=== PATIENT | female | born 1960 | race Caucasian/White ===

== ENCOUNTER 2019-08-10 09:11 | Outpatient (CLI) | payer OTHER, SELFPAY ==
--- NOTE | 2019-08-10 13:46 | DI.RAD_ITS ---
EXAM: XR HIP RT COMPLETE AP PELVIS CLINICAL HISTORY: RT HIP DYSFUNCTION, LOSS OF ROM, EVALUATE FOR DJD TECHNIQUE: COMPARISON: No exams were available for comparison FINDINGS: Two views were obtained. The cartilaginous joint spaces both hips appear well maintained. There is minimal hypertrophic spurring of the acetabula bilaterally. No other bony abnormality seen. IMPRESSION: Minimal DJD of both hips.
--- NOTE | 2019-08-10 14:12 | DI.RAD_ITS ---
EXAM: XR LUMBAR SPINE COMPLETE CLINICAL HISTORY: LUMBOSACRAL DISC/FACET SYNDROME, H/O DDD TECHNIQUE: COMPARISON: No exams were available for comparison FINDINGS: Five views were obtained and show moderate hypertrophic changes of the facet joints most marked at L4 -5 and L5-S1. No evidence of spondylolysis or spondylolisthesis. There is loss of intervertebral di sc height at L5-S1 consistent with disc degeneration. There is no evidence of spondylolysis or spond ylolisthesis. SI joints show mild degenerative change. No fracture identified. IMPRESSION: Degenerative facet changes most marked at L4-5 L5-S1 bilaterally.
== END 2019-08-10 09:31 ==
PROVIDERS: PCP Nurse Practitioner Family
DX: M25.551 Pain in right hip (principal); M25.851 Other specified joint disorders, right hip; M16.0 Bilateral primary osteoarthritis of hip; M54.5 Low back pain; M47.818 Spondylosis without myelopathy or radiculopathy, sacral and sacrococcygeal region; M51.37 Other intervertebral disc degeneration, lumbosacral region
CPT/HCPCS: 72110; 73502

== ENCOUNTER 2019-09-20 13:15 | Outpatient (CLI) | payer OTHER, SELFPAY ==
--- NOTE | 2019-09-20 13:52 | DI.RAD_ITS ---
EXAM: XR KNEE RT 3V AP,LAT,ELIZABETH INDICATION: CHRONIC RECURRENT POSTEROLATERAL KNEE SPRAIN/STRAIN, ? DJD, REMOTE ACL RECONSTRUCTION. COMPARISON: No exams were available for comparison TECHNIQUE: 2D digital imaging was performed. FINDINGS: There are lucencies in the distal fibula and proximal tibia related to previous ACL repair. There is moderate narrowing of the medial femorotibial joint space and mild medial spurring. The lateral fem orotibial joint space is well maintained. No joint effusion is seen. IMPRESSION: Moderate degenerative changes of the medial femorotibial joint.
== END 2019-09-20 13:35 ==
PROVIDERS: PCP Nurse Practitioner Family; Visit Provider Chiropractor
DX: M25.561 Pain in right knee (principal); M17.11 Unilateral primary osteoarthritis, right knee; S83.91XD Sprain of unspecified site of right knee, subsequent encounter
CPT/HCPCS: 73562

== ENCOUNTER 2020-09-30 00:20 | Outpatient (CLI) | payer OTHER, SELFPAY ==
--- NOTE | 2020-09-30 | DI.MAMMO_ITS ---
EXAM: MG MAMMO SCREENING CLINICAL HISTORY: SCREENING, [facility],Z00.00 TECHNIQUE: Bilateral full field digital CC and MLO mammographic images were obtained with 3D tomosyn thesis and utilizing computer aided detection (CAD). COMPARISON: Available for comparison. FINDINGS: Masses/Architectural Distortion: There is a small asymmetric density in the outer left breast on the CC view. Microcalcifications: No suspicious pleomorphic-type are seen. Skin Thickening/Nipple Retraction: None. IMPRESSION: 1. Asymmetric density in the outer left breast on the CC view. 2. Further evaluation with spot compression views recommended. Ultrasound may be indicated at that t tg. BI-RADS Category 0 - Assessment Incomplete: Need additional imaging evaluation Breast Density - Category B - Scattered areas of fibroglandular density A negative radiographic report should not delay biopsy if a dominant or clinically suspicious mass is present. Up to ten percent of cancers are not identified on mammography. A negative report may reinforce clinical impression. Adenosis and dense breasts may obscure an underlying neoplasm. False positive reports average 6 to 10%. Patient will receive a letter notifying them of these results.
== END 2020-09-30 00:40 ==
PROVIDERS: PCP Nurse Practitioner Family; Visit Provider Nurse Practitioner Family
DX: Z12.31 Encounter for screening mammogram for malignant neoplasm of breast (principal); R92.8 Other abnormal and inconclusive findings on diagnostic imaging of breast
CPT/HCPCS: 77063; 77067

== ENCOUNTER 2020-10-15 01:41 | Outpatient (CLI) | payer OTHER, SELFPAY ==
--- NOTE | 2020-10-15 | DI.US_ITS ---
EXAM: MG MAMMO SCREEN CALL BACK UNI CLINICAL HISTORY: F/U MAMMO, ASYMMETRIC DENSITY OUTER LT BREAST TECHNIQUE: Mammograms were interpreted according to the usual protocol including computer analysis w ith CAD system, tomosynthesis and C-view imaging. COMPARISON: FINDINGS: Additional mammographic views of the left breast and left breast ultrasound are interpreted in conjun ction. These examinations were obtained to evaluate questionable area of asymmetric density in appro ximately the 3 o'clock position in the left breast seen on recent mammogram. Additional mammographic views fail to show a discrete mass. Breast ultrasound shows no discrete solid mass, there is a 3 mi llimeter in diameter simple cyst with minimal homogeneous internal echogenicity in approximately the 4 o'clock position 3 cm from the nipple in the left breast. IMPRESSION: No specific evidence of malignancy at this time. Follow-up unilateral left breast mammogram recomme nded in 6 months. BI-RADS Category 3 - 6 month - Probably Benign Finding: Recommend follow-up mammography in 6 months Breast Density - Category B - Scattered areas of fibroglandular density
== END 2020-10-15 02:01 ==
PROVIDERS: PCP Nurse Practitioner Family; Visit Provider Nurse Practitioner Family
DX: Z12.31 Encounter for screening mammogram for malignant neoplasm of breast (principal); R92.8 Other abnormal and inconclusive findings on diagnostic imaging of breast; N60.02 Solitary cyst of left breast
CPT/HCPCS: 76642; 77063; 77067

== ENCOUNTER 2021-05-12 12:40 | Outpatient (REF) | payer OTHER, SELFPAY ==
--- NOTE | 2021-05-12 10:30 | PAPFT_PTH ---
PATIENT: Isis Spears LOC: [facility] U#:[id number] AGE/SX: 61/F ROOM: RE05/12/[address]: Elvira Desai : 1960 BED: DIS: 05/12/2021 SPEC #: [id number] RECD: 05/13/21 12:56 STATUS: LAN RENikolai #: [id number] BERTRAM: 05/12/21 10:[address]: Elvira Desai DEPT: [facility] Cytology RECD BY: Jessie Gaitan Tissues: 1 - CX/ENDOCX FOR PAP SMEARS Procedures: PAP THIN PREP/UVM Screening HPV DNA PROBE Comments: [id number]
[2021-05-12 20:18] LABS: Anion Gap 10.1 mmol/L (3-11); BUN 22 mg/dL (7-18); CO2 26.9 mmol/L (21.0-32.0); CREATININE 0.9 mg/dL (0.55-1.02); Calcium 9.2 mg/dL (8.5-10.1); Calculated LDL 135 mg/dL (<100); Chloride 105 mmol/L (98-107); Cholesterol 209 mg/dL (<200); Glucose 85 mg/dL (74-106); HDL Cholesterol 58 mg/dL (40-60); Potassium 4.5 mmol/L (3.5-5.1); Sodium 142 mmol/L (136-145); TSH (W/Ref FT4) 1.12 uIU/mL (0.36-3.74); Triglyceride 80 mg/dL (<150)
== END 2021-05-12 12:41 | disposition home or self-care (01) ==
LOC: NCHCN 12:40
PROVIDERS: PCP Nurse Practitioner Family; Visit Provider Nurse Practitioner Family
DX: Z00.00 Encounter for general adult medical examination without abnormal findings (principal); Z82.49 Family history of ischemic heart disease and other diseases of the circulatory system; Z83.3 Family history of diabetes mellitus; Z12.4 Encounter for screening for malignant neoplasm of cervix; Z11.51 Encounter for screening for human papillomavirus (HPV)
CPT/HCPCS: 80048; 80061; 88142; 84443; 87624

== ENCOUNTER 2021-05-21 13:34 | Outpatient (REF) | payer OTHER, SELFPAY ==
[2021-05-21 15:41] LABS: Hemoglobin A1C 6.1 % (<5.7)
== END 2021-05-21 13:35 | disposition home or self-care (01) ==
LOC: NCHCN 13:34
PROVIDERS: PCP Nurse Practitioner Family; Visit Provider Nurse Practitioner Family
DX: Z13.1 Encounter for screening for diabetes mellitus (principal)
CPT/HCPCS: 83036

== ENCOUNTER 2021-05-21 15:02 | Outpatient (CLI) | payer OTHER, SELFPAY ==
--- NOTE | 2021-05-21 | DI.RAD_ITS ---
Exam(s) XR THORACIC SPINE COMPLETE EXAM: XR THORACIC SPINE COMPLETE CLINICAL HISTORY: UPPER BACK PAIN, M54.9 TECHNIQUE: COMPARISON: CR CHEST 2 VIEWS PA,LAT from 09/05/2013 CR CHEST 2 VIEWS PA,LAT from 09/05/2013 FINDINGS: Three views were obtained. There is mild anterior compression deformity of what appears to be the T4 vertebral body. IMPRESSION: Mild anterior T4 vertebral body compression fracture of uncertain age. RADIATION DOSE DELIVERED: Total DLP
--- NOTE | 2021-05-21 | DI.RAD_ITS ---
Exam(s) XR CERVICAL SPINE COMP 4-5V EXAM: XR CERVICAL SPINE COMP 4-5V CLINICAL HISTORY: NECK PAIN, M54.2. TECHNIQUE: 2D digital imaging was performed. COMPARISON: No exams were available for comparison FINDINGS: There is no evidence of acute fracture. Calcification is seen in the supraspinous ligament posterior to the spinous process is of C7 and T1. These calcifications do not have the appearance of acute av ulsion velasquez-regulator pin inserter's fractures. There is moderate disc space narrowing at C5-6 level. Small Luschka joint osteophytes evident at thi s level. The other disc spaces exhibit normal height. There is mild anterolisthesis of C4 upon C5 r elated to facet joint arthropathy. The disc space at this level exhibits normal height. Disc space at C6-7 level also exhibits normal height. There are no cervical ribs. No osseous lesions. Cervical curvature is maintained. IMPRESSION: Degenerative disc disease at C5-6 as described above. Other findings as above. DATA REPOSITORY: RADIATION DOSE DELIVERED:
== END 2021-05-21 15:22 ==
PROVIDERS: PCP Nurse Practitioner Family; Visit Provider Nurse Practitioner Family
DX: S22.040A Wedge compression fracture of fourth thoracic vertebra, initial encounter for closed fracture (principal); M54.9 Dorsalgia, unspecified; M50.322 Other cervical disc degeneration at C5-C6 level; X58.XXXA Exposure to other specified factors, initial encounter; Y99.8 Other external cause status
CPT/HCPCS: 72050; 72072

== ENCOUNTER 2021-06-17 02:03 | Outpatient (CLI) | payer OTHER, SELFPAY ==
--- NOTE | 2021-06-17 09:50 | DI.MAMMO_ITS ---
Exam(s) MG MAMMO DIAGNOSTIC UNI EXAM: MAMMO DIAGNOSTIC UNI CLINICAL HISTORY: DIAGNOSTIC, F/U ABNL MAMMO, 6 MO F/U,R92.8. TECHNIQUE: Craniocaudal and mediolateral oblique Full Field Digital Mammography views of the left br east with Computer Aided Diagnosis followed by Tomosynthesis. COMPARISON: Priors available for comparison. FINDINGS: Mammography/Tomosynthesis: Masses/Architectural Distortion: None seen. Microcalcifictions: No suspicious pleomorphic-type are seen. Skin Thickening/Nipple Retraction: None. IMPRESSION: 1. No evidence of malignancy is noted. 2. Unless there is more urgent need, follow-up screening mammography is recommended, as per [place] [employer] guidelines. 3. The findings were discussed with the patient on the date of the examination. BI-RADS Category 1 - Negative Breast Density - Category B - Scattered areas of fibroglandular density Breast density Category C or D implies that the patient has dense breast tissue. Dense breast tissue can make it harder to find cancer on a mammogram. Dense breast tissue is also associated with an incr eased risk of breast cancer. This information about the result of the mammogram report was provided to the patient to raise their awareness. Use this report when you speak with the patient about their risks for breast cancer, which includes their family history. At that time, you may recommend additional screening tests (Ultrasoun d or MRI) as these tests may add significant information. A negative radiographic report should not delay biopsy if a dominant or clinically suspicious mass is present. Up to ten percent of cancers are not identified on mammography. A negative report may reinforce clinical impression. Adenosis and dense breasts may obscure an underlying neoplasm. False positive reports average 6 to 10%. Patient will receive a letter notifying them of these results.
== END 2021-06-17 02:23 ==
PROVIDERS: PCP Nurse Practitioner Family; Visit Provider Nurse Practitioner Family
DX: R92.8 Other abnormal and inconclusive findings on diagnostic imaging of breast (principal)
CPT/HCPCS: 77061; 77065; G0279

== ENCOUNTER 2022-01-04 11:40 | Outpatient (CLI) | payer OTHER, SELFPAY ==
--- NOTE | 2022-01-04 11:00 | DI.RAD_ITS ---
Exam(s) XR SHOULDER LT COMPLETE 2+V EXAM: XR SHOULDER LT COMPLETE 2+V CLINICAL HISTORY: CLOSED PROXIMAL HUMERUS FRACTURE. TECHNIQUE: 2D digital imaging was performed. COMPARISON: No exams were available for comparison FINDINGS: Two views No evidence of fracture or dislocation soft tissue calcifications. The subacromial space is not dimi nished. No osteophytes. No degenerative changes glenohumeral and AC joints. Bone density is age ap propriate. IMPRESSION: DATA REPOSITORY: RADIATION DOSE DELIVERED:
== END 2022-01-04 11:41 | disposition home or self-care (01) ==
LOC: DIORS 11:40
PROVIDERS: PCP Nurse Practitioner Family; Visit Provider Physician Assistant
DX: S42.295A Other nondisplaced fracture of upper end of left humerus, initial encounter for closed fracture (principal); V80.010A Animal-rider injured by fall from or being thrown from horse in noncollision accident, initial encounter
CPT/HCPCS: 73030

== ENCOUNTER 2022-02-19 10:34 | Outpatient (CLI) | payer OTHER, SELFPAY ==
--- NOTE | 2022-02-19 10:15 | DI.RAD_ITS ---
Exam(s) XR SHOULDER LT COMPLETE 2+V EXAM: XR SHOULDER LT COMPLETE 2+V CLINICAL HISTORY: F/U LEFT PROXIMAL HUMERUS FRACTURE. TECHNIQUE: 2D digital imaging was performed. COMPARISON: DX Shoulder LT from 12/16/2021 CR XR SHOULDER LT COMPLETE 2+V from 01/04/2022 FINDINGS: 3 views There appear to be a healing fracture site at the greater tuberosity level. No other findings. No obvious degenerative changes in the AC joint. IMPRESSION: DATA REPOSITORY: RADIATION DOSE DELIVERED:
== END 2022-02-19 10:35 | disposition home or self-care (01) ==
LOC: DIORS 10:34
PROVIDERS: PCP Nurse Practitioner Family; Referring Provider Nurse Practitioner Family; Visit Provider Student in an Organized Health Care Education/Training Program
DX: S42.295D Other nondisplaced fracture of upper end of left humerus, subsequent encounter for fracture with routine healing (principal); V80.010D Animal-rider injured by fall from or being thrown from horse in noncollision accident, subsequent encounter
CPT/HCPCS: 73030

== ENCOUNTER 2022-03-22 13:48 | Outpatient (CLI) | payer OTHER, SELFPAY ==
--- NOTE | 2022-03-22 13:00 | DI.RAD_ITS ---
Exam(s) XR SHOULDER LT COMPLETE 2+V EXAM: XR SHOULDER LT COMPLETE 2+V CLINICAL HISTORY: left proximal humerus fx f/u. TECHNIQUE: 2D digital imaging was performed. Three views. COMPARISON: DX Shoulder LT from 12/16/2021 CR XR SHOULDER LT COMPLETE 2+V from 01/04/2022 CR XR SHOULDER LT COMPLETE 2+V from 02/19/2022 FINDINGS: BONES: No change in greater tuberosity fracture.. No bony destructive lesion is seen. JOINTS: No dislocation present. Mild degenerative changes of the glenohumeral joint. SOFT TISSUE: Normal. IMPRESSION: Stable greater tuberosity fracture. DATA REPOSITORY: RADIATION DOSE DELIVERED:
== END 2022-03-22 13:49 | disposition home or self-care (01) ==
LOC: DIORS 13:48
PROVIDERS: PCP Nurse Practitioner Family; Referring Provider Nurse Practitioner Family; Visit Provider Physician Assistant
DX: S42.295D Other nondisplaced fracture of upper end of left humerus, subsequent encounter for fracture with routine healing (principal); V80.010D Animal-rider injured by fall from or being thrown from horse in noncollision accident, subsequent encounter
CPT/HCPCS: 73030

== ENCOUNTER 2022-06-10 10:05 | Outpatient (CLI) | payer OTHER, SELFPAY ==
--- NOTE | 2022-06-10 09:45 | DI.RAD_ITS ---
Exam(s) XR SHOULDER LT COMPLETE 2+V EXAM: XR SHOULDER LT COMPLETE 2+V CLINICAL HISTORY: f/u left proximal humerus fracture TECHNIQUE: COMPARISON: CR XR SHOULDER LT COMPLETE 2+V from 03/22/2022 FINDINGS: Two views were obtained and show previously described greater tuberosity fracture of the humerus whic h shows no change in alignment and considerable interval healing in comparison with examination of Ju ne 6th. IMPRESSION: RADIATION DOSE DELIVERED: Total DLP
== END 2022-06-10 10:06 | disposition home or self-care (01) ==
LOC: DIORS 10:05
PROVIDERS: PCP Nurse Practitioner Family; Referring Provider Nurse Practitioner Family; Visit Provider Student in an Organized Health Care Education/Training Program
DX: S42.295D Other nondisplaced fracture of upper end of left humerus, subsequent encounter for fracture with routine healing (principal); V80.010D Animal-rider injured by fall from or being thrown from horse in noncollision accident, subsequent encounter
CPT/HCPCS: 73030

== ENCOUNTER → 2022-06-25 00:41 | Outpatient (CLI) | payer OTHER, SELFPAY ==
--- NOTE | 2022-06-25 | DI.DEXA_ITS ---
Exam(s) XR DEXA BONE DENSITY W/WO SABA EXAM: XR DEXA BONE DENSITY W/WO SABA CLINICAL HISTORY: SCREENING FOR OSTEOPOROSIS,Z13.820 TECHNIQUE: COMPARISON: Comparison is made with prior examinations. FINDINGS: Lateral Spine Image: Unremarkable. No compression deformities identified. Left hip: Total T-Score: -1.3. This is unchanged compared to the prior examination. Total Z-Score: -0.3 T- and Z-scores: Findings are consistent with osteopenia. Lumbar Spine: Total T-Score: -1.2. This is unchanged compared to the prior examination. Total Z-Score: 0.2 T- and Z-scores: Findings are consistent with osteopenia. IMPRESSION: Osteopenia in the left hip and lumbar spine.
== END ==
PROVIDERS: PCP Nurse Practitioner Family; Visit Provider Nurse Practitioner Family
DX: Z13.820 Encounter for screening for osteoporosis (principal); M85.89 Other specified disorders of bone density and structure, multiple sites
CPT/HCPCS: 77080

== ENCOUNTER 2023-06-29 19:16 | Outpatient (REF) | payer OTHER, SELFPAY ==
[2023-06-29 20:02] LABS: HGB 13.7 g/dL (11.2-15.7); MCH 29.7 pg (27.0-33.0); MCHC 33.4 % (32.0-36.0); MCV 89 fL (80-95); MPV 11.7 fL (8.0-11.0); Platelet Count 233 10^3/uL (130-400); RBC 4.62 10^6/uL (3.93-5.22); RDW 14.2 % (11.7-14.6); RDW-SD 45.5 fL; WBC 6.54 10^3/uL (4.4-10.8)
[2023-06-29 20:11] LABS: ALT 34 U/L (14-59); AST 24 U/L (15-37); Albumin 4.1 g/dL (3.4-5.0); Alkaline Phosphatase 81 U/L (46-116); Anion Gap 6.9 mmol/L (3-11); BUN 23 mg/dL (7-18); Bilirubin, Total 0.4 mg/dL (0.2-1.0); CO2 27.1 mmol/L (21.0-32.0); CREATININE 0.9 mg/dL (0.55-1.02); Calcium 9.3 mg/dL (8.5-10.1); Calculated LDL 134 mg/dL (<100); Chloride 105 mmol/L (98-107); Cholesterol 220 mg/dL (<200); Estimated GFR 72.28 (mL/min/1.73m2); Glucose 80 mg/dL (74-106); HDL Cholesterol 58 mg/dL (40-60); Potassium 4.1 mmol/L (3.5-5.1); Sodium 139 mmol/L (136-145); Total Protein 7.8 g/dL (6.4-8.2); Triglyceride 141 mg/dL (<150)
[2023-07-01 08:41] LABS: Hepatitis C Ab w Rflx HCV PCR Negative (Negative)
[2023-07-01 11:27] LABS: HIV-1/2 Ag & Ab Screen Negative (Negative)
== END 2023-06-29 19:17 | disposition home or self-care (01) ==
LOC: NCHCN 19:16
PROVIDERS: PCP Nurse Practitioner Family; Visit Provider Nurse Practitioner Family
DX: Z00.00 Encounter for general adult medical examination without abnormal findings (principal); R73.03 Prediabetes; M85.88 Other specified disorders of bone density and structure, other site; Z11.4 Encounter for screening for human immunodeficiency virus [HIV]; Z11.59 Encounter for screening for other viral diseases; R79.89 Other specified abnormal findings of blood chemistry
CPT/HCPCS: 80053; 80061; 85027; 86803; 87389; 83036

== ENCOUNTER → 2023-07-12 01:02 | Outpatient (CLI) | payer OTHER, SELFPAY ==
--- NOTE | 2023-07-12 07:45 | DI.MAMMO_ITS ---
Exam(s) MAMMO SCREENING EXAM: MAMMO SCREENING CLINICAL HISTORY: SCREENING,Z12.39 TECHNIQUE: Bilateral full field digital CC and MLO mammographic images were obtained with 3D tomosyn thesis and utilizing computer aided detection (CAD). COMPARISON: Available for comparison. FINDINGS: Masses/Architectural Distortion: There appear to be 2 new round well-circumscribed nodules in the med ial retroareolar region of the left breast. The largest measures 4 mm. No areas of architectural di stortion are present. Microcalcifications: No suspicious pleomorphic-type are seen. Skin Thickening/Nipple Retraction: None. IMPRESSION: 1. New left breast nodules. 2. These area should be further evaluated with spot compression view. Limited left breast ultrasound is recommended at that time. BI-RADS Category 0 - Assessment Incomplete: Need additional imaging evaluation Breast Density - Category B - Scattered areas of fibroglandular density Breast density category C or D implies that the patient has dense breast tissue. Dense breast tissue is very common and is not abnormal but dense breast tissue can make it harder to find cancer on a ma mmogram. Also, dense breast tissue may increase their breast cancer risk. This information about the result of the mammogram report was provided to the patient to raise their awareness. Use this report when you speak with the patient about their risks for breast cancer, which includes their family hist ory. At that time, you may recommend for more screening tests (Ultrasound or MRI) as they might be us eful based on their risk. A negative radiographic report should not delay biopsy if a dominant or clinically suspicious mass is present. Up to ten percent of cancers are not identified on mammography. A negative report may reinforce clinical impression. Adenosis and dense breasts may obscure an underlying neoplasm. False positive reports average 6 to 10%. Patient will receive a letter notifying them of these results.
== END ==
PROVIDERS: PCP Nurse Practitioner Family; Visit Provider Nurse Practitioner Family
DX: Z12.39 Encounter for other screening for malignant neoplasm of breast (principal); N63.20 Unspecified lump in the left breast, unspecified quadrant
CPT/HCPCS: 77063; 77067

== ENCOUNTER → 2023-07-27 00:47 | Outpatient (CLI) | payer OTHER, SELFPAY ==
--- NOTE | 2023-07-27 | DI.US_ITS ---
Exam(s) MG MAMMO SCREEN CALL BACK UNI US BREAST LT LIMITED EXAM: MG MAMMO SCREEN CALL BACK UNI CLINICAL HISTORY: F/U MAMMO, NEW LT BREAST NODULES. TECHNIQUE: Craniocaudal and mediolateral oblique spot compression digital Mammography views of the b reast with Tomosynthesis and breast ultrasound. COMPARISON: US US BREAST LT LIMITED from 07/27/2023 FINDINGS: Mammography/Tomosynthesis: Masses: No suspicious persistent nodules. Architectural Distortion: None seen. Microcalcifictions: No suspicious pleomorphic-type are seen. Skin Thickening/Nipple Retraction: None. Left breast US: Echotexture: Normal appearance of the glandular tissue. Shadowing: No suspicious foci. Cyst: None. Solid lesions: None seen. Ductal dilation: Mild dilatation of the subareolar ducts. IMPRESSION: 1. No evidence of malignancy is noted. 2. Unless there is more urgent need, follow-up screening mammography is recommended, as per [place] [employer] guidelines. 3. The findings were discussed with the patient on the date of the examination. BI-RADS Category 2 - Benign Findings Breast Density - Category B - Scattered areas of fibroglandular density A negative radiographic report should not delay biopsy if a dominant or clinically suspicious mass is present. Up to ten percent of cancers are not identified on mammography. A negative report may reinforce clinical impression. Adenosis and dense breasts may obscure an underlying neoplasm. False positive reports average 6 to 10%. Patient will receive a letter notifying them of these results.
== END ==
PROVIDERS: PCP Nurse Practitioner Family; Visit Provider Nurse Practitioner Family
DX: Z12.31 Encounter for screening mammogram for malignant neoplasm of breast (principal); R92.8 Other abnormal and inconclusive findings on diagnostic imaging of breast
CPT/HCPCS: 76642; 77063; 77067

== ENCOUNTER 2023-09-16 06:43 | Day surgery (SDC) | payer OTHER, SELFPAY ==
--- NOTE | 2023-09-15 19:40 | W.PM.DSUDISC ---
Date of service: 09/16/23 Time of Service: 09:40 Discharge Plan Disposition Patient Disposition: Home Condition: Good Discharge Details Reason For Visit: screening colonoscopy Attending Provider: Froilan Briones Primary Care Provider: RIP UREÑA Home Meds and New Rx's Prescriptions: Continued glucosamine-chondroitin 500-400 mg tablet 1 tab PO DAILY diclofenac sodium [Voltaren Arthritis Pain] 1 % gel 2 g topical QID Rx Instructions: apply to single elbow, wrist or hand; for hand includes palm/fingers/back of hand calcium carbonate-vitamin D3 1 EACH tablet 1 tab PO DAILY omega-3 fatty acids-fish oil 1 EACH capsule 1 cap PO DAILY magnesium oxide 400 MG tablet 400 mg PO DAILY No Action biotin 800 mcg tablet 800 mcg PO DAILY diclofenac sodium 3 % gel 1 applic TOPICAL HS Patient Comments: Apply 1 as directed to affected area twice a day as needed for pain Discharge Instructions Instructions: Diverticulosis (GEN), Colorectal Polyps (GEN), Diverticulosis Diet (GEN) Additional Instructions: Zoie, we were able to complete your colonoscopy today without any difficulty. Your prep was great, and I could see everything just fine. Like we talked about beforehand, you do have some diverticulosis. The diverticula occur all along the length of your large intestine. I would say that the absolute number of them is about moderate, but they are all fairly [place], and I do not see any recent evidence of significant inflammation or bleeding. I also did find 1 small polyp. I removed it completely. It will take about a week or 2 for me to get the results of the polyp report, but once I have those, I will be in touch with my recommendations for your next colonoscopy. 1. If tolerated, consume a soft, low fiber diet for 1-2 days. 2[address] Do not drive, drink alcohol, operate machinery, make critical decisions, or do activities that require coordination or balance for 24 hours. 3. Because air was put into your colon during the procedure, expelling air from your rectum (passing gas or farting) is normal. 4. You may not have a bowel movement for 1-3 days because of the colonoscopy prep. This is normal. 5. Go directly to the emergency room if you notice any of the following: Develop chills (warm to touch), or if you have a thermometer and your temperature is above 101 Difficulty breathing or difficultly swallowing Persistent vomiting Severe abdominal pain, other than gas cramps Severe chest pain Black, tarry stools Any bleeding ? exceeding one tablespoon 6. Call your physician if the site where your intravenous was started becomes red, swollen, painful, and warm to touch. 7. Your physician has reviewed your pre-procedure medications. Please continue to take those medications as previously ordered. You will be given specific information/education regarding any changes to your medications before leaving. Activity:: Activity as Tolerated Diet:: As Tolerated Discharge Orders Discharge Orders: Discharge Order (Routine); Ordered 09/15/23 Ordered By: Froilan Briones DS: Diagnosis Discharge Diagnosis (1) Screen for colon cancer: Status: Acute Asessment and Plan: Follow-up on polypectomy results
--- NOTE | 2023-09-15 19:51 | W.COLOREPORT ---
Date of service: 09/16/23 Time of Service: 09:42 Colonoscopy Report Date of procedure: 09/16/23 Pre-op diagnosis general: screening colonoscopy Post-op diagnosis procedure note: other (Diverticulosis, colon polyp) Procedure: Colonoscopy with polypectomy Surgeon: Froilan Briones Anesthesia Type: General:No Airway Estimated blood loss (mL): 5 Pathology: other (0.25 cm polyp at 90 cm from the anus) Complications: None Disposition: same day Indications: Zoie is 63 years old. She needs a screening colonoscopy Prep: Miralax/Dulcolax Procedure Start Time: 09:03 Procedure End Time: :21 Retraction Time: 18 Findings: Diverticulosis, 0.25 cm polyp at 90 cm from the anus Procedure Description: After the induction of monitored anesthetic care, and with the patient in left lateral decubitus position, I began by performing an external anorectal exam.? Perineum and skin were normal, as was the anal verge.? There was no evidence of external hemorrhoids.? Next, I performed a digital rectal exam.? I did not appreciate any abnormal findings.? Next, I advanced a colonoscope into the rectal vault.? I performed retroflexion.? This was normal.? Using insufflation, I then advanced the colonoscope beyond the rectal folds and into the sigmoid colon before advancing towards the cecum.? There is scattered [place] colonic diverticula along the length of the large intestine. The quality of the prep was outstanding.? The scope was noted to be in the cecum by identification of the ileocecal valve and appendiceal orifice.? I then began withdrawing the colonoscope using repeated irrigation as necessary for full evaluation of the colonic mucosa. Around 90 0.25 cm sessile cm from the anal verge I identified a polyp. ?It appeared in character. ?I was able to remove this with a cold forceps. ?I examined the site, and there was minimal bleeding. ?Once this was completed, I continued to withdraw the scope and examine the remainder of the colonic mucosa.?Once the scope was withdrawn to the level of the rectum, great care was taken to examine portions of the rectal folds.? Finally, the scope was withdrawn and the patient was brought to the same-day surgery recovery unit as the anesthetic wore off. ?The findings and instructions were shared with the patient prior to discharge. [place] Bowel Prep [place] Bowel Prep Right Colon: 3 Left Colon: 3 Transverse Colon: 3 Total Score: 9
--- NOTE | 2023-09-16 06:40 | W.ANESPRE ---
General Info Date of Service Date Performed: 09/16/23 Height: 5 ft 3 in Weight: 66.224 kg Body Mass Index (BMI): 25.8 Surgical Procedure: Operation Date: 09/16/23 08:20 Proposed Procedure Side Surgeon melissa Briones MD Meds Allergies and Home Medications Allergies Allergy/AdvReac Type Severity Reaction Status Date / Time No Known Allergies Allergy Unverified 09/16/23 07:01 Home Medication Medication Instructions Recorded calcium carbonate 600 mg-vitamin 1 tab PO DAILY 09/05/13 D3 10 mcg (400 unit) tablet magnesium oxide 400 mg (241.3 mg 400 mg PO DAILY 09/05/13 magnesium) tablet omega-3 fatty acids-fish oil 360 1 cap PO DAILY 09/05/13 mg-1,200 mg capsule glucosamine-chondroitin 500 mg-400 1 tab PO DAILY 01/04/22 mg tablet diclofenac sodium 1 % topical gel 2 g topical QID 08/16/23 (Voltaren Arthritis Pain) biotin 800 mcg tablet 800 mcg PO DAILY 09/16/23 diclofenac sodium 3 % topical gel 1 applic topical HS 09/16/23 Current Visit Medications: Current Medications Generic Name Dose Route Start Last Admin Trade Name Freq PRN Reason Stop Dose Admin Hyoscyamine Sulfate 0.125 mg 09/15/23 19:52 Hyoscyamine 0.125 Mg Sl/Oral/Chew SL 10/15/23 19:51 DIRECTED PRN Ringer's Solution 1,000 mls @ 80 mls/hr 09/16/23 06:00 IV 10/15/23 23:59 INFUSION DOMO IV Miscellaneous Supplies 1 each 09/16/23 06:00 Iv Access IV 10/15/23 23:59 DIRECTED DOMO Ondansetron HCl 4 mg 09/15/23 19:52 Ondansetron 4 Mg/2 Ml Vial IVP 10/15/23 19:51 Q4H PRN PRN Nausea / Vomiting Sodium Chloride 0 ml 09/16/23 06:00 Normal Saline Flush 10 Ml Syr IV 10/15/23 23:59 PRN PRN Sodium Chloride 0 ml 09/16/23 06:00 Normal Saline 10 Ml Vial IJ 10/15/23 23:59 DIRECTED PRN Sterile Water 0 ml 09/16/23 06:00 Water,Injection,Sterile 10 Ml Vial IJ 10/15/23 23:59 DIRECTED PRN PFSH Active Problems Active Problems: Problem Status Onset Code Screen for colon cancer Z12.11 Diverticulosis K57.90 Closed fracture of left proximal humerus 12/16/21 S42.202A Medical History Medical History Systolic murmur Family history of diabetes mellitus Family history of coronary artery disease H/O solar lentigo Vascular anomaly Osteopenia History of prediabetes Skin lesions Surgical History Surgical History History of repair of ACL (~2008) History of bilateral tubal ligation (~2002) Tobacco Smoking/Tobacco Use Status: Never Substance Use Substance use: Never Vital Signs and Lab Results Vital Signs Most Recent Vital Signs in EMR: Temp Pulse Resp BP Pulse Ox 36.6 C 76 16 105/88 99 09/16/23 07:11 09/16/23 07:11 09/16/23 07:11 09/16/23 07:11 09/16/23 07:11 Lab Results Blood Type / Crossmatch: No Data to Display Complete Blood Count: No Data to Display Complete Metabolic Panel: No Data to Display Liver Function Panel: No Data to Display Coagulation Panel: No Data to Display Cardiac Panel: No Data to Display Arterial Blood Gas: No Data to Display Venous Blood Gas: No Data to Display Pancreas Panel: No Data to Display Thyroid Panel: No Data to Display Infectious Disease: No Data to Display Blood Cultures: No Data to Display Toxicology Panel: No Data to Display Anesthesia Assessment and Plan Anesthesia History Personal History: No History of Anesthesia Complications Family History: No Family History of Anesthesia Complications Exercise Tolerance Exercise Tolerance: Metabolic Equivalents>4 Cardiac & Pulmonary Exam Cardiac Exam: Normal S1/S2 Heart Sounds Pulmonary Exam: Clear Bilateral Breath Sounds Implantable Cardiac Device Does patient have a Pacemaker or an ICD?: No Airway Exam Known Difficult Airway: No Mallampati Class: 1 Mouth Opening: Normal (> 3cm) Thyromental Distance: Greater than 3 cm Neck Range of Motion: Full ROM Neck Circumference: Normal Teeth Condition: Normal Dentition ASA Classification ASA Score: ASA 2 Emergency Case?: No NPO Status NPO Status: NPO Clears >2 hours, Solids >8 hours Anesthesia Plan Resuscitation Status: Full Code Anesthesia Technique: General Anesthesia Airway Planned: Natural Airway Monitors Used: Standard Monitors Preoperative Comments:: 63 yo female for colo. Sig PMHx: never smoker, no major. PVCs/bigem during last colo ()
[2023-09-16 07:11] VITALS: BP 105/88; PULSE 76; RESP 16; TEMP 36.6; O2SAT 99
[2023-09-16] MEDS: Lactated Ringers 1,000 ML 80 ML IV (07:25)
[2023-09-16 07:35] VITALS: BMI 25.8
--- NOTE | 2023-09-16 09:12 | BOWEL_PTH ---
PATIENT: Isis Spears LOC: [facility] U#:[id number] AGE/SX: 63/F ROOM: RE09/16/[address]: Froilan Briones MD : 1960 BED: DIS: 09/16/2023 SPEC #: [id number] RECD: 09/16/23 12:20 STATUS: LAN RE #: [id number] BERTRAM: 09/16/23 09:[address]: Froilan Briones DEPT: Surgical Specimen RECD BY: Jessie Gaitan ENTERED: 09/16/23 12:21 SP TYPE: Bowel OTHR DR: RIP UREÑA NP Tissues: 1 - BIOPSY BOWEL Procedures: GROSS AND MICRO LEVEL 4 Comments: [id number]
[2023-09-16 09:44] VITALS: BP 101/74; PULSE 85; RESP 16; TEMP 36.5; O2SAT 96
[2023-09-16 09:46] VITALS: BP 97/78; PULSE 89; RESP 16; O2SAT 96
--- NOTE | 2023-09-16 09:54 | W.ANESPOSTOP ---
Postoperative Evaluation Date, Time and Location Date Performed: 09/16/23 Time Performed: 09:40 Patient Location: Day [facility] Unit Vital Signs Most Recent Imported Vital Signs: Most Recent Vital Signs Temp Pulse Resp BP Pulse Ox 36.5 C 89 16 97/78 L 96 09/16/23 09:44 09/16/23 09:46 09/16/23 09:46 09/16/23 09:46 09/16/23 09:46 Pain Score Most Recent Pain Score: Most Recent Pain Score Pain Level 0 09/16/23 09:46 Assessment Mental Status: Awake (Alert & Oriented to Patient Baseline) Airway and Respiratory Function: Patent airway with normal (patient baseline) respiratory exam Cardiovascular Function: Hemodynamically Stable Hydration Status: Adequately Hydrated Nausea & Vomiting: No Nausea or Vomiting Pain: Pt. Denies Any Pain Peripheral Nerve Block: Patient did not receive a nerve block
[2023-09-16 10:16] VITALS: BP 117/75; PULSE 64; RESP 18; O2SAT 97
== END 2023-09-16 10:15 | disposition home or self-care (01) ==
PROVIDERS: PCP Nurse Practitioner Family; Visit Provider Surgery
PROC: 0DJD8ZZ Inspection of Lower Intestinal Tract, Via Natural or Artificial Opening Endoscopic (ICD-10-PCS; CPT 45378; principal; 2023-09-16 08:15)
DX: Z12.11 Encounter for screening for malignant neoplasm of colon (principal); D12.3 Benign neoplasm of transverse colon; K57.30 Diverticulosis of large intestine without perforation or abscess without bleeding
CPT/HCPCS: 45380; 88305; J2001

== ENCOUNTER 2023-11-28 19:17 | Outpatient (CLI) | payer OTHER, SELFPAY ==
[2023-11-28 17:28] LABS: TSH (W/Ref FT4) 0.89 uIU/mL (0.36-3.74)
[2023-11-29 18:24] LABS: Thyroglobulin Antibody <15 U/mL (<=60); Thyroperoxidase Antibody <28 U/mL (<=60)
== END 2023-11-28 19:18 | disposition home or self-care (01) ==
LOC: LBO 19:17
PROVIDERS: PCP Nurse Practitioner Family; Visit Provider Otolaryngology
DX: J02.9 Acute pharyngitis, unspecified (principal)
CPT/HCPCS: 36415; 86376; 84443

== ENCOUNTER 2024-08-08 02:27 | Outpatient (CLI) | payer OTHER, SELFPAY ==
--- NOTE | 2024-08-08 | DI.MAMMO_ITS ---
Exam(s) MAMMO SCREENING EXAM: MAMMO SCREENING CLINICAL HISTORY: Screening, Z12.39. TECHNIQUE: Bilateral full field digital CC and MLO mammographic images were obtained with 3D tomosyn thesis and utilizing computer aided detection (CAD). COMPARISON: Prior mammograms were reviewed. FINDINGS: There has been no significant change in the appearance and distribution of the fibroglandular tissue. There are no new spiculated masses nor malignant appearing microcalcification groups. There is no significant architectural distortion nor skin thickening-retraction. IMPRESSION: No radiographic evidence of malignancy. BI-RADS Category 1 - Negative Breast Density - Category B - Scattered areas of fibroglandular density Breast density Category C or D implies that the patient has dense breast tissue. Dense breast tissue can make it harder to find cancer on a mammogram. Dense breast tissue is also associated with an incr eased risk of breast cancer. This information about the result of the mammogram report was provided to the patient to raise their awareness. Use this report when you speak with the patient about their risks for breast cancer, which includes their family history. At that time, you may recommend additional screening tests (Ultrasoun d or MRI) as these tests may add significant information. A negative radiographic report should not delay biopsy if a dominant or clinically suspicious mass is present. Up to ten percent of cancers are not identified on mammography. A negative report may reinforce clinical impression. Adenosis and dense breasts may obscure an underlying neoplasm. False positive reports average 6 to 10%. Patient will receive a letter notifying them of these results.
== END 2024-08-08 02:47 ==
LOC: DI 02:32
PROVIDERS: PCP Nurse Practitioner Family; Visit Provider Nurse Practitioner Family
DX: Z12.31 Encounter for screening mammogram for malignant neoplasm of breast (principal)
CPT/HCPCS: 77063; 77067

== ENCOUNTER 2025-07-15 16:00 | Outpatient (REF) | payer OTHER, SELFPAY ==
[2025-07-15 17:07] LABS: HCT 41.6 % (36.0-46.0); HGB 14.0 g/dL (11.2-15.7); MCH 30.0 pg (27.0-33.0); MCHC 33.7 % (32.0-36.0); MCV 89 fL (80-95); MPV 11.5 fL (8.0-11.0); Platelet Count 201 10^3/uL (130-400); RBC 4.67 10^6/uL (3.93-5.22); RDW 14.1 % (11.7-14.6); RDW-SD 45.9 fL; WBC 6.78 10^3/uL (4.4-10.8)
[2025-07-15 18:31] LABS: ALT 36 U/L (14-59); AST 22 U/L (15-37); Albumin 3.9 g/dL (3.4-5.0); Alkaline Phosphatase 84 U/L (46-116); Anion Gap 11.3 mmol/L (3-11); BUN 30 mg/dL (7-18); Bilirubin, Total 0.6 mg/dL (0.2-1.0); CO2 24.7 mmol/L (21.0-32.0); Calcium 9.1 mg/dL (8.5-10.1); Chloride 106 mmol/L (98-107); Cholesterol 217 mg/dL (<200); Glucose 116 mg/dL (74-106); HDL Cholesterol 55 mg/dL (>or=50); Potassium 4.4 mmol/L (3.5-5.1); Sodium 142 mmol/L (136-145); Total Protein 7.5 g/dL (6.4-8.2); Vitamin B12 815 pg/mL (193-986)
[2025-07-15 18:53] LABS: Hemoglobin A1C 6.0 % (<5.7)
== END 2025-07-15 16:01 | disposition home or self-care (01) ==
LOC: NCHCN 16:00
PROVIDERS: PCP Nurse Practitioner Family; Visit Provider Nurse Practitioner Family
DX: Z00.00 Encounter for general adult medical examination without abnormal findings (principal)
CPT/HCPCS: 80053; 80061; 85027; 82607; 83036

== ENCOUNTER 2025-08-02 04:20 | Outpatient (CLI) | payer OTHER, SELFPAY ==
--- NOTE | 2025-08-02 | DI.MRI_ITS ---
Exam(s) MR LOWER JOINT RT WO EXAM: MR LOWER JOINT RT WO CLINICAL HISTORY: PAIN IN R KNEE, OTHER CHRONIC PAIN M25.561. TECHNIQUE: Multiplanar multisequence MRI was performed. COMPARISON: CR XR KNEE RT 3V AP,LAT,ELIZABETH from 09/20/2019 FINDINGS: No recent plain films are available for comparison. BONES: There is no fracture or contusion pattern. A there is metallic artifact greatest in the distal femur related to previous surgery. JOINTS: A small joint effusion is present. Articular cartilage: Patellofemoral joint: Cartilage thinning over the medial patellar facet. Periarticular spurring. Medial femoral tibial joint: Mild spurring at the medial femoral condyle and medial tibial plateau. Diffuse cartilage thinning. Tiny focal defect at the posterior aspect of the medial femoral condyle. Lateral femoral tibial joint: Articular cartilage is unremarkable. LIGAMENTS/TENDONS: Anterior Cruciate: Prior anterior cruciate ligament repair which appears intact. Posterior Cruciate: Unremarkable. Medial Collateral:Unremarkable. Lateral Collateral ligament complex: Unremarkable. Extensor mechanism: Unremarkable. Medial retinaculum: Unremarkable. Lateral retinaculum: Unremarkable. Popliteus: Unremarkable. MENISCI: The medial meniscus of the medial meniscus is peripherally displaced, degenerative. There is some blunting at the posterior horn but no evidence of discrete tear. The lateral meniscus is unremarkable. MUSCLES: Unremarkable. SOFT TISSUES: Small Enrique's cyst. IMPRESSION: Prior anterior cruciate ligament repair appears intact. Degenerative changes of the medial femoral tibial joint and meniscus without evidence of discrete tear. Chondromalacia of the medial patellar facet. DATA REPOSITORY:
== END 2025-08-02 04:40 ==
PROVIDERS: PCP Nurse Practitioner Family; Visit Provider Nurse Practitioner Family
DX: M25.561 Pain in right knee (principal); G89.29 Other chronic pain
CPT/HCPCS: 73721

== ENCOUNTER → 2025-08-19 02:18 | Outpatient (CLI) | payer OTHER, SELFPAY ==
--- NOTE | 2025-08-19 08:04 | DI.MAMMO_ITS ---
Exam(s) MAMMO SCREENING EXAM: MAMMO SCREENING CLINICAL HISTORY: SCREENING MAMMO Z12.31 TECHNIQUE: Bilateral full field digital CC and MLO mammographic images were obtained with 3D tomosynthesis and utilizing computer aided detection (CAD). COMPARISON: Comparison is made with prior examinations. FINDINGS: Masses/Architectural Distortion: No suspicious masses or areas of architectural distortion are present. Microcalcifications: No suspicious pleomorphic-type are seen. Skin Thickening/Nipple Retraction: None. IMPRESSION: 1. No significant interval change with no specific features of malignancy noted. 2. Unless there is more urgent need, screening mammography is recommended, as per [employer] guidelines. BI-RADS Category 1 - Negative Breast Density - Category B - There are scattered areas of fibroglandular density. Breast density Category C or D implies that the patient has dense breast tissue. Dense breast tissue can make it harder to find cancer on a mammogram. Dense breast tissue is also associated with an increased risk of breast cancer. This information about the result of the mammogram report was provided to the patient to raise their awareness. Use this report when you speak with the patient about their risks for breast cancer, which includes their family history. At that time, you may recommend additional screening tests (Ultrasound or MRI) as these tests may add significant information. A negative radiographic report should not delay biopsy if a dominant or clinically suspicious mass is present. Up to ten percent of cancers are not identified on mammography. A negative report may reinforce clinical impression. Adenosis and dense breasts may obscure an underlying neoplasm. False positive reports average 6 to 10%. Patient will receive a letter notifying them of these results.
== END ==
LOC: DI 02:18
PROVIDERS: PCP Nurse Practitioner Family; Visit Provider Nurse Practitioner Family
DX: Z12.31 Encounter for screening mammogram for malignant neoplasm of breast (principal)
CPT/HCPCS: 77063; 77067

== ENCOUNTER 2025-09-09 10:37 | Outpatient (CLI) | payer OTHER, SELFPAY ==
--- NOTE | 2025-09-09 09:45 | DI.RAD_ITS ---
Exam(s) XR KNEE RT 4V AP,LAT,ELIZABETH,PAT EXAM: XR KNEE RT 4V AP,LAT,ELIZABETH,PAT CLINICAL HISTORY: RIGHT KNEE PAIN. TECHNIQUE: 2D digital imaging was performed of the right knee. Four views obtained. Merchant, AP, lateral and PA tunnel views were obtained. COMPARISON: CR XR KNEE RT 3V AP,LAT,ELIZABETH from 09/20/2019 FINDINGS: BONES: No acute fracture is present. No bony destructive lesion is seen. There are findings of a prior ACL repair. There is an enthesophyte at the superior patella. JOINTS: There is mild narrowing of the medial femoral tibial joint. There osteophytes seen at the posterior patella and in the medial femoral tibial joint. No joint effusion is seen. SOFT TISSUE: Normal. IMPRESSION: Iyri-ij-feujsobt osteoarthritis of the right knee. DATA REPOSITORY: RADIATION DOSE DELIVERED:
== END 2025-09-09 10:38 | disposition home or self-care (01) ==
LOC: DIORS 10:38
PROVIDERS: PCP Nurse Practitioner Family; Visit Provider Student in an Organized Health Care Education/Training Program
DX: M25.561 Pain in right knee (principal); M17.11 Unilateral primary osteoarthritis, right knee
CPT/HCPCS: 73564